=== PATIENT | female | born 1970 | race Caucasian/White ===

== ENCOUNTER → 2017-01-10 | Outpatient (CLI) | payer OTHER ==
[2017-01-10 09:31] LABS: Basophils # (auto) 0 uL; Basophils % (auto) 0.8 % (0.0-2.0); Eosinophils # (auto) 0.1 uL; Eosinophils % (auto) 2.3 % (0.0-7.0); Hematocrit 41.5 % (36.0-46.0); Hemoglobin 14.1 g/dL (12.2-16.2); Lymphocytes # (auto) 2.4 uL; Lymphocytes % (auto) 44.5 % (10.0-50.0); Mean Corpuscular Hemoglobin 29.8 pg (28.0-32.0); Mean Corpuscular Hgb Conc. 34.1 g/dL (32.0-36.0); Mean Corpuscular Volume 87.4 fL (80.0-100.0); Monocytes # (auto) 0.4 uL; Monocytes % (auto) 8.2 % (0.0-12.0); Neutrophils # (auto) 2.4 uL; Neutrophils % (auto) 44.2 % (37.0-80.0); Platelet Count (auto) 270 10^3/uL (140-450); Red Blood Cells 4.75 10^6/uL (4.0-5.20); Red Cell Distribution Width 12.8 % (11.8-14.3); White Blood Cell 5.4 10^3/uL (4.4-10.8)
== END | disposition home or self-care (01) ==
LOC: LAB 09:14
PROVIDERS: ATTEND Specialist
DX: N80.9 Endometriosis, unspecified (principal); R94.6 Abnormal results of thyroid function studies
CPT/HCPCS: 36415; 84443; 85025

== ENCOUNTER → 2017-02-13 | Outpatient (CLI) | payer OTHER | END | disposition home or self-care (01) | LOC: LAB 10:00 | PROVIDERS: ATTEND Specialist | DX: N92.0 Excessive and frequent menstruation with regular cycle (principal); N85.00 Endometrial hyperplasia, unspecified ==

== ENCOUNTER 2017-04-04 07:13 | Inpatient (IN) | payer OTHER ==
[2017-04-03 12:13] LABS: Basophils # (auto) 0 uL; Basophils % (auto) 0.6 % (0.0-2.0); Eosinophils # (auto) 0.1 uL; Eosinophils % (auto) 1.2 % (0.0-7.0); Hematocrit 42.6 % (36.0-46.0); Hemoglobin 14.5 g/dL (12.2-16.2); Mean Corpuscular Hemoglobin 29.4 pg (28.0-32.0); Mean Corpuscular Hgb Conc. 34.1 g/dL (32.0-36.0); Mean Corpuscular Volume 86.1 fL (80.0-100.0); Monocytes # (auto) 0.3 uL; Monocytes % (auto) 6.6 % (0.0-12.0); Neutrophils # (auto) 2.8 uL; Neutrophils % (auto) 53.6 % (37.0-80.0); Nucleated Red Blood Cells % 0.1 %; Platelet Count (auto) 258 10^3/uL (140-450); Red Blood Cells 4.94 10^6/uL (4.0-5.20); Red Cell Distribution Width 12.7 % (11.8-14.3); White Blood Cell 5.2 10^3/uL (4.4-10.8)
[2017-04-03 12:23] LABS: Urine Bacteria FEW /hpf (None Seen); Urine Blood Negative /uL (Negative); Urine Specific Gravity 1.003 (1.001-1.035); Urine WBC <1 /hpf (0 - 5)
[2017-04-03 12:28] LABS: INR 0.98 (0.9-1.15); Partial Thromboplastin Time 24.8 sec (22.64-33.71); Prothrombin Time 10.7 sec (9.37-12.3)
[2017-04-03 13:04] LABS: Albumin 4.2 g/dL (3.4-5.0); BUN/Creatinine Ratio 10.1; Bilirubin, Total 1.1 mg/dL (0.2-1.0); Calcium 9.1 mg/dL (8.5-10.1); Potassium 3.8 mmol/L (3.5-5.1); Total Protein 8.4 g/dL (6.4-8.2)
[~2017-04-04] VITALS: Ht 165.1 cm; Wt 79.5 kg
[2017-04-04] MEDS ORDERED: SUCCINYLCHOLINE CHLORIDE 20 MG/ML 10ML VIAL IV ONE (07:43)
[2017-04-04] MEDS ORDERED: LIDOCAINE 1% HCL (LOCAL ANESTH.) INJ 20ML MDV ONE (07:43)
[2017-04-04] MEDS ORDERED: MORPHINE SULF(PF) 0.5MG/ML 10ML VIAL ONE (07:45)
[2017-04-04] MEDS ORDERED: MIDAZOLAM HCL 1MG/1ML-2 ML VIAL ONE ×2 (07:45→09:25)
[2017-04-04] MEDS ORDERED: ROCURONIUM 10MG/ML 10ML VIAL IV ONE (07:47)
[2017-04-04] MEDS ORDERED: PROPOFOL 10 MG/ML 20 ML IV ONE (07:47)
[2017-04-04] MEDS ORDERED: ceFAZolin 1GM/50ML 50 ML IV ONE (07:47)
[2017-04-04] MEDS ORDERED: STERILE WATER 10 ML ONE (07:53)
[2017-04-04] MEDS ORDERED: ePHEDrine SULFATE 50 MG/ML AMP ONE (07:53)
[2017-04-04] MEDS ORDERED: METOCLOPRAMIDE HCL 5MG/ml INJ 2ml VIAL ONE (08:22)
[2017-04-04] MEDS ORDERED: ONDANSETRON HCL 4 MG/2 ML VIAL IV PRN ×2 (10:00→12:00)
[2017-04-04] MEDS ORDERED: ONDANSETRON HCL 4 MG/2 ML VIAL IV ONE (10:00)
[2017-04-04] MEDS ORDERED: KETOROLAC TROMETH 30 MG/ML 1ML VIAL IV PRN (10:00)
[2017-04-04] MEDS ORDERED: diphenhdrAMINE HCL 50 MG/1 ML VL IV PRN (10:00)
[2017-04-04] MEDS ORDERED: NALOXONE HCL 0.4 MG/ML VIAL IV PRN ×2 (10:00)
[2017-04-04] MEDS ORDERED: HYDROmorphone HCL 2 MG/ML VL IV PRN (12:00)
[2017-04-04] MEDS: HYDROmorphone HCL 2 MG/ML VL IV PRN ×2 (12:12→12:29)
[2017-04-04 13:28] VITALS: BP 147/92
[2017-04-04 13:34] LABS: Albumin 3.3 g/dL (3.4-5.0); BUN/Creatinine Ratio 12.4; Bilirubin, Total 0.6 mg/dL (0.2-1.0); Total Protein 6.8 g/dL (6.4-8.2)
[2017-04-04] MEDS ORDERED: IBUP100S11 PO (13:43)
[2017-04-04] MEDS ORDERED: PHEN1LIQ39 PO (13:43)
[2017-04-04] MEDS ORDERED: MULTTAB61 PO (13:43)
[2017-04-04] MEDS ORDERED: OMEG600C2 PO (13:43)
[2017-04-04] MEDS: KETOROLAC TROMETH 30 MG/ML 1ML VIAL IV SCH ×2 (14:16→18:06)
[2017-04-04] MEDS: ceFAZolin 1GM/50ML 50 ML IV SCH (16:06)
[2017-04-04] MEDS: LACTATED RINGER'S 1,000 ML IV SCH ×2 (16:07→18:13)
[2017-04-04 16:50] VITALS: BP 147/92
[2017-04-04 20:00] VITALS: BP 127/71
[2017-04-04 22:00] VITALS: BP 127/71
[2017-04-05] MEDS: ceFAZolin 1GM/50ML 50 ML IV SCH ×2 (00:24→08:36)
[2017-04-05] MEDS: KETOROLAC TROMETH 30 MG/ML 1ML VIAL IV SCH ×2 (00:24→05:34)
[2017-04-05] MEDS: LACTATED RINGER'S 1,000 ML IV SCH ×3 (02:53→14:11)
[2017-04-05 05:34] VITALS: BP 124/70
[2017-04-05 06:40] LABS: Basophils # (auto) 0 uL; Basophils % (auto) 0.7 % (0.0-2.0); Eosinophils # (auto) 0.2 uL; Eosinophils % (auto) 2.6 % (0.0-7.0); Hematocrit 38.7 % (36.0-46.0); Hemoglobin 12.8 g/dL (12.2-16.2); Lymphocytes # (auto) 1.5 uL; Lymphocytes % (auto) 25.3 % (10.0-50.0); Mean Corpuscular Hemoglobin 29.7 pg (28.0-32.0); Mean Corpuscular Hgb Conc. 33.1 g/dL (32.0-36.0); Mean Corpuscular Volume 89.8 fL (80.0-100.0); Monocytes # (auto) 0.5 uL; Monocytes % (auto) 8.9 % (0.0-12.0); Neutrophils # (auto) 3.7 uL; Neutrophils % (auto) 62.5 % (37.0-80.0); Nucleated Red Blood Cells % 0.4 %; Platelet Count (auto) 174 10^3/uL (140-450); Red Blood Cells 4.31 10^6/uL (4.0-5.20); Red Cell Distribution Width 12.8 % (11.8-14.3); White Blood Cell 5.9 10^3/uL (4.4-10.8)
[2017-04-05] MEDS ORDERED: HYDROcodone-ACET 5/325MG TAB PO PRN (08:45)
[2017-04-05 08:58] VITALS: BP 123/68
[2017-04-05] MEDS: HYDROcodone-ACET 5/325MG TAB PO PRN ×3 (10:54→22:33)
[2017-04-05 11:51] VITALS: BP 138/85
[2017-04-05] MEDS: IBUPROFEN 800 MG TAB PO PRN ×2 (15:18→23:37)
[2017-04-05 17:00] VITALS: BP 138/85
[2017-04-05 20:00] VITALS: BP 128/90
[2017-04-05 21:45] VITALS: BP 128/90
[2017-04-06 05:42] VITALS: BP 119/69
[2017-04-06] MEDS: IBUPROFEN 800 MG TAB PO PRN (08:52)
[2017-04-06 09:00] VITALS: BP 134/86
== END 2017-04-06 12:15 | disposition home or self-care (01) | DRG 743 ==
LOC: SUR 07:13 → TELE-WESTW 07:14
PROVIDERS: ADMIT Specialist; ATTEND Specialist
PROC: 0UT70ZZ Resection of Bilateral Fallopian Tubes, Open Approach (ICD-10-PCS; 2017-04-04)
PROC: 0UT90ZL Resection of Uterus, Supracervical, Open Approach (ICD-10-PCS; principal; 2017-04-04 09:22)
DX: N80.0 Endometriosis of uterus (principal); G89.29 Other chronic pain; N92.1 Excessive and frequent menstruation with irregular cycle
CPT/HCPCS: 36415; 80053; 81001; 84702; 85025; 85610; 85730; 86850; 86900; 86901; J0330; J0690; J1885; J2001; J2250; J2704

== ENCOUNTER → 2017-06-11 | Outpatient (CLI) | payer OTHER ==
[~2017-06-11] MED LIST: IBUP100S11 PO; MULTTAB61 PO; OMEG600C2 PO; PHEN1LIQ39 PO
[2017-06-11 11:21] LABS: Follicle Stimulating Hormone 6.36 IU/L (SEE BELOW)
== END | disposition home or self-care (01) ==
LOC: LAB 09:42
PROVIDERS: ATTEND Specialist
DX: N95.1 Menopausal and female climacteric states (principal)
CPT/HCPCS: 82670; 83001; 83002; 84144